=== PATIENT | female | born 1950 | race Caucasian/White ===

== ENCOUNTER → 2019-05-16 | Outpatient (CLI) | payer MEDICARE, BC ==
[2014-06-20 11:56] VITALS: BP 142/66
[~2019-05-16] MED LIST: ASPI-630 PO; LOSA100T14 PO; SIMV40TA3 PO
--- NOTE | 2019-05-16 13:59 | RAD ---
Complete abdomen ultrasound study INDICATIONS: Abdominal pain with loss. Midline mass per patient. FINDINGS: Gallbladder is surgically absent. The extra hepatic bile duct measures 4.5 mm in caliber which is normal.The tail of the pancreas is poorly visualized due to overlying bowel gas. No focal enlargement of the rest of the pancreas is seen. No focal hepatic mass is seen. The liver measures 14.1 cm in length. The length of the right kidney is 10.2 cm. The length of the left kidney is 10.2 cm. The lower pole of the left kidney is as well visualized due to overlying bowel gas. Otherwise no hydronephrosis or renal mass or perinephric fluid collection is seen on either side. No ascites is seen. The spleen measures 8.7 cm in length which is normal. No focal aneurysmal dilatation of the abdominal aorta is seen. The intrahepatic portion of IVC is unremarkable. Sonography of the palpable mass of the umbilical region as indicated by the patient was performed. No soft tissue mass or hernia is seen in this area. IMPRESSION: Unremarkable study. Electronically signed by: Osmel Youssef MD (05/16/2019 1:56 PM) [id number]
== END | disposition home or self-care (01) ==
LOC: US 09:13
PROVIDERS: ATTEND Family Medicine
DX: R63.4 Abnormal weight loss (principal); R10.9 Unspecified abdominal pain; Z90.49 Acquired absence of other specified parts of digestive tract
CPT/HCPCS: 76700